=== PATIENT | female | born 1970 | race Caucasian/White ===

== ENCOUNTER 2017-06-04 17:25 | Emergency (ER) | payer SELFPAY ==
[~2017-06-04] VITALS: Ht 149.9 cm; Wt 81.8 kg
[2017-06-04] MEDS ORDERED: [UNRECOGNIZED DRUG - CODE] PO (18:05)
[2017-06-04] MEDS ORDERED: DIAZEPAM 2 MG TABLET PO ONE (19:00)
[2017-06-04] MEDS ORDERED: IBUPROFEN 600 MG TABLET PO ONE (19:00)
[2017-06-04 22:24] VITALS: BP 144/79
== END 2017-06-04 22:26 | disposition home or self-care (01) ==
LOC: EMS 17:27
DX: S16.1XXA Strain of muscle, fascia and tendon at neck level, initial encounter (principal); M54.5 Low back pain; M54.6 Pain in thoracic spine; V49.50XA Passenger injured in collision with unspecified motor vehicles in traffic accident, initial encounter; Y93.89 Activity, other specified; Y92.411 Interstate highway as the place of occurrence of the external cause; Y99.8 Other external cause status
CPT/HCPCS: 72040; 72072; 72100; 99284